=== PATIENT | male | born 1960 | race Caucasian/White ===

== ENCOUNTER 2022-12-03 20:35 | Emergency (ER) | payer OTHER, SELFPAY ==
[2022-12-03 20:39] VITALS: BP 140/85; PULSE 81; RESP 16; TEMP 36.9; O2SAT 98; BMI 30.5
--- NOTE | 2022-12-03 20:48 | ED_ITS ---
HPI - General Adult General Time Seen by Provider: 20:48 Date Seen: 12/03/22 Chief complaint: Lower Extremity Swelling Stated complaint: R leg abrasion, possibly infected Time Seen by Provider: 12/03/22 20:48 Source: patient, RN notes reviewed and old records reviewed Mode of arrival: ambulatory Limitations: no limitations History of Present Illness HPI narrative: 62-year-old male who presents today with a right leg wound and pain. 5 days ago he hit his right leg assisting abrasions and swelling. The swelling is moved down leg but he is concerned now because it seems warm and red. Denies fever, chills, nausea, vomiting, diarrhea. Has been treating this with hydrogen peroxide, antibiotic ointment. Related Data Previous Rx's Medication Instructions Recorded amoxicillin 500 mg-potassium 1 tab PO TID #20 tabs 12/03/22 clavulanate 125 mg tablet (Augmentin) doxycycline hyclate 100 mg capsule 100 mg PO BID #14 caps 12/03/22 Allergies Allergy/AdvReac Type Severity Reaction Status Date / Time No Known Drug Allergies Allergy Verified 12/03/22 20:43 Review of Systems Status of ROS: Reports: 10 or more systems reviewed and unremarkable except as noted in History and below Exam Narrative: Exam Narrative: General: well nourished , NAD Head: Atraumatic and normocephalic ENT: External ears and external nose are normal Eyes: Conjunctiva clear, pupils are equal reactive, external ocular motions are intact Neck: Full spontaneous range of motion of the neck Lungs: No respiratory distress Musculoskeletal: Right lower leg with swelling and bruising expanding to the toes and lateral calcaneal area. Abrasion with swelling of the lateral lower leg, mild redness and some warmth with some serous drainage. Neurologic: No gross focal neurologic deficits Skin: No rashes Psych: Mood and affect are appropriate Const: Vital Signs, click to edit/add: Vital Signs - 24 hr 12/03/22 20:39 Temperature 98.5 F Pulse Rate [Right Pulse Oximeter] 81 Respiratory Rate 16 Blood Pressure [Ri ght Upper Arm] 140/85 H Pulse Oximetry 98 Oxygen Delivery Me thod Room Air Course Course Hospital Course: Patient seen examined, prior records reviewed. Patient presents today about 5 days after an injury to the right leg with increased redness and lb swelling. On exam, there is marked gravity dependent bruising going into the foot and ankle area with no pain in these areas, ambulating without difficulty. On the lateral lower leg there is an area of localized swelling with an overlying harsha char, mild redness and warmth. This is most consistent with hematoma, possibly now infected. At this point, patient has no systemic signs of infection. Will be started on oral antibiotics and follow-up with general surgery for consider of opening this if antibiotics are not sufficient, may also need wound care down the road although generally looks pretty good now. Vital Signs Vital signs: Initial Vital Signs Temperature 98.5 F 12/03/22 20:39 Temperature Source Temporal Artery Scan 12/03/22 20:39 Pulse Rate 81 12/03/22 20:39 Pulse Rhythm Regular 12/03/22 20:39 Pulse Strength 3+ Normal 12/03/22 20:39 Respiratory Rate 16 12/03/22 20:39 Blood Pressure 140/85 H 12/03/22 20:39 Blood Pressure Mean 103 12/03/22 20:39 Blood Pressure Position Sitting 12/03/22 20:39 Pulse Oximetry 98 12/03/22 20:39 Oxygen Delivery Method Room Air 12/03/22 20:39 Vital Signs Temperature 98.5 F 12/03/22 20:39 Pulse Rate 81 12/03/22 20:39 Respiratory Rate 16 12/03/22 20:39 Blood Pressure 140/85 H 12/03/22 20:39 Pulse Oximetry 98 12/03/22 20:39 Oxygen Delivery Method Room Air 12/03/22 20:39 Temperature 98.5 F 12/03/22 20:39 Pulse Rate 81 12/03/22 20:39 Respiratory Rate 16 12/03/22 20:39 Blood Pressure 140/85 H 12/03/22 20:39 Pulse Oximetry 98 12/03/22 20:39 Oxygen Delivery Method Room Air 12/03/22 20:39 Medical Decision Making Medical Records Medical records reviewed: Yes I reviewed the patient's medical records Lab Data Lab results reviewed: Yes I reviewed the patient's lab results Discharge Plan Discharge Clinical Impression: Traumatic hematoma of lower leg with infection Patient Disposition: Home, Self-Care Condition: Stable Instructions: Wound Infection (DC), Hematoma (ED) Additional Instructions: Continue wound care with gentle washing daily, dressing as needed. Follow-up with general surgery in 2-3 days for recheck. Call [phone] for an appointment. Activity Level: Activity as Tolerated Discharge Diet: Regular Prescriptions: New amoxicillin-pot clavulanate [Augmentin] 500-125 mg tablet 1 tab PO TID Qty: 20 0RF doxycycline hyclate 100 mg capsule 100 mg PO BID Qty: 14 0RF Follow Up/Referrals: Abel Castorena MD [Primary Care Provider] - Stand Alone Forms: [email or web address] Info Instructions
[2022-12-03] MEDS: AMOXICILLIN/CLAVULANATE 875 mg/125 mg TABLET PO (21:18)
[2022-12-03] MEDS: DOXYCYCLINE HYCLATE 100 MG CAPSULE PO (21:32)
== END 2022-12-03 21:38 | disposition home or self-care (01) ==
LOC: ED 21:08
PROVIDERS: Emergency Provider Family Medicine; PCP Family Medicine
DX: S80.11XA Contusion of right lower leg, initial encounter (principal); X58.XXXA Exposure to other specified factors, initial encounter
CPT/HCPCS: 99282; 99283; 99284; A9270

== ENCOUNTER 2023-10-10 07:55 | Outpatient (CLI) | payer OTHER, SELFPAY ==
--- OUTSIDE RECORDS SUMMARY | 2023-10-15 12:59 | XMS_ITS | Clinical Summary ---
Author Name Unknown Organization [facility] Address [place], [place] [address] Care Team Providers Care Customer Supply Chain Analyst Name Role Phone Puneet Aguila Primary Care Provider [phone] Allergies No known active allergies Medications Medication Sig Dispensed Refills Start Date End Date Status tamsulosin (FLOMAX) 0.4 mg capsuleIndications:BP H with urinary obstruction Take 1 capsule by mouth once daily after a meal. 90 capsule 3 11/26/2019 Active naproxen (NAPROSYN) 500 mg tabletIndications:Lum bar disc herniation Take 1 tablet by mouth 2 times daily with meals. 60 tablet 1 02/07/2020 Active Active Problems Problem Noted Date Diagnosed Date Overweight 12/31/2019 BPH without urinary obstruction 12/31/2019 Lumbar degenerative disc disease 12/31/2019 Prediabetes Resolved Problems Problem Noted Date Diagnosed Date Resolved Date Routine health maintenance 04/05/2011 0 12/31/2019 Overview: Colonoscopy done 05/25 Immunizations Name Administration Dates Next Due AMB INFLUENZA, IIV4 (AGE=>6MOS) MDV (Flu Clinic Only) 04/10/2019 Influenza, IIV3 (Age >=3 years) 02/28/2015,03/19 MMR 07/30/1989 Tdap 12/31/2019,06/16/2010 Zoster (Shingrix-RZV, recombinant) 04/10/2019, Family History Medical History Relation Name Comments Diabetes Brother Stroke Father Cancer-colon Maternal Grandfather Arthritis Mother @ 78 Multiple sclerosis Paternal Grandfather Alzheimer's disease Paternal Grandmother late onset Relation Name Status Comments Brother Alive Father Alive Maternal Grandfather Maternal Grandmother Mother Paternal Grandfather Paternal Grandmother Social History Tobacco Use Types Packs/Day Years Used Date Smoking Tobacco: Never Smokeless Tobacco: Never Tobacco Cessation:Counseling Given: Yes Alcohol Use Standard Drinks/Week Comments No 0 (1 standard drink = 0.6 oz pur e alcohol) PHQ-2 Answer Date Recorded PHQ-2 TOTAL SCORE 0 11/26/2019 Social Connections Answer Date Recorded Frequency of Communication with Friends and Fami ly Not on file 06/16/2021 Financial Resource Strain Answer Date R ecorded Difficulty of Paying Living Expenses Not on file 06/16/2021 Difficulty of Paying Living Expenses Not on file 06/16/2021 Sex and Gender Information Value Date Recorded Sex Assigned at Not on file Gender Identity Not on file Sexual Orientation Not on file Obstetrics History Last Filed Vital Signs Vital Sign Reading Time Taken Comments Blood Pressure 111/73 02/07/2020 8:03 AM CDT Pulse 59 02/07/2020 8:03 AM CDT Temperature 36.4 ??C (97.6 ??F) 02/07/2020 8:03 AM CD T Respiratory Rate 20 12/03/2019 7:57 AM CDT Oxygen Saturation 97% 02/07/2020 8:03 AM CDT Inhaled Oxygen Concentration - - Weight 108.9 kg (240 lb) 02/07/2020 8:03 AM CDT Height 181.8 cm (5' 11.58) 12/31/2019 7:58 AM C DT Body Mass Index 32.94 12/31/2019 7:58 AM CDT Plan of Treatment Health Maintenance Due Date Last Done Comments HIV for age 15-65 1975 Hepatitis C screening for age 18-79 1978 Colonoscopy through age 75 2005 Depression screening for age 12+ 11/25/2020 11/26/2019, 10/21/2016 BMI (ht and wt on same day) for age 18+ 12/30/2020 12/31/2019, 12/03/2019, 11/26/2019, Additional history exists COVID-19 vaccine series (2022- season) 2023 Influenza for age 50-64 02/15/2024 04/10/20 19, 02/28/2015, 03/19/2012 Lipids for age 45-75 12/23/2024 12/24/2019, 10/21/2016, 06/15/2013, Additional history exists Tetanus booster 12/30/2029 12/31/2019, 06/16/2010 Zoster (shingles) series for age 50+ Completed 04/10/2019, 01/15/2019 Tdap Completed 12/31/2019, 06/16/2010 Pneumococcal series for age 6-64 Aged Out No longer eligible based on patient's age to complete this topic Procedures Procedure Name Priority Date/Time Associated Diagnosis Comments LIPID PANEL W REFLEX MEASURED LDL Routine 12/24/2019 8:07 AM CDT Lipid screening from Last 3 Months or Most Recently Relevant to Health Maintenance Results * (ABNORMAL) LIPID PANEL W REFLEX MEASURED LDL (12/24/2019 8:07 AM CDT) CHOLESTEROL,TOTAL 184 100 - 199 mg/dL 12/24/2019 2:34 PM CDT [facility] TRIGLYCERIDES 122 <150 mg/dL 12/24/2019 2:34 PM CDT [facility] HDL CHOLESTEROL 39(L) >40 mg/dL 0 2:34 PM CDT [facility] NON-HDL CHOLESTEROL 145(H) <145 mg/dl 12/24/2019 2:34 PM CDT [facility] CHOL/HDL RATIO 4.72(H) <4.50 12/24/2019 2:34 PM CDT [facility] LDL CHOLESTEROL 121 <=130 mg/dL 12/24/2019 2:34 PM CDT [facility] PROVIDER ORDERED STATUS RANDOM 12/24/2019 2:34 PM CDT [facility] Blood BLOOD SPECIMEN / Unknown Venipuncture / Unknown 12/24/2019 8:07 AM CDT 12/24/2019 8:43 AM CDT Abel Castorena MD [facility] [address] [place] [address], [place] from Last 3 Months or Most Recently Relevant to Health Maintenance Care Teams Customer Supply Chain Analyst Relationship Specialty [place] [address] [place] [address] PCP - General Family Practice 04/16/18
== END 2023-10-10 07:56 | disposition home or self-care (01) ==
LOC: NFLDREF 10-15 12:58
PROVIDERS: PCP Internal Medicine; Referring Provider Internal Medicine; Visit Provider Internal Medicine
DX: Z12.5 Encounter for screening for malignant neoplasm of prostate (principal); Z13.220 Encounter for screening for lipoid disorders; Z13.228 Encounter for screening for other metabolic disorders
CPT/HCPCS: 80053; 80061; G0103

== ENCOUNTER 2024-06-04 10:09 | Outpatient (CLI) | payer OTHER, SELFPAY | END 2024-06-04 10:10 | disposition home or self-care (01) | PROVIDERS: PCP Internal Medicine; Visit Provider Physician Assistant | DX: M17.11 Unilateral primary osteoarthritis, right knee (principal) | CPT/HCPCS: 87070; 87075; 87205; 89060 ==

== ENCOUNTER 2024-09-30 10:00 | Outpatient (CLI) | payer OTHER, SELFPAY | END 2024-09-30 10:01 | disposition home or self-care (01) | LOC: NFLDREF 10-03 18:39 | PROVIDERS: PCP Internal Medicine; Referring Provider Internal Medicine; Visit Provider Orthopaedic Surgery Sports Medicine | DX: M17.11 Unilateral primary osteoarthritis, right knee (principal); M25.461 Effusion, right knee | CPT/HCPCS: 87070; 87075; 87205; 89051; 89060 ==

== ENCOUNTER 2025-05-16 06:22 | Outpatient (CLI) | payer OTHER, SELFPAY ==
--- NOTE | 2025-05-16 07:49 | P.ANES_ITS ---
Anesthesia Charges Start Date/Time Anesthesia Start Date: 05/16/25 Anesthesia Start Time: 07:17 Stop Date/Time Anesthesia Stop Date: 05/16/25 Anesthesia Stop Time: 07:48 Coding CPT Codes CPT Codes: ROSY LWR INTST NDSC NOS - [id number] ([id number]) P2 - PATIENT W/MILD SYST DISEASE, QK - DEBURRER STRIP 2-4 CNCRNT ANES PROC, QX - CUSTOMS GUARD SVC W/ MD MED DIRECTION
--- NOTE | 2025-05-16 07:49 | W.ANESCHARGE ---
Anesthesia Charges Start Date/Time Anesthesia Start Date: 05/16/25 Anesthesia Start Time: 07:17 Stop Date/Time Anesthesia Stop Date: 05/16/25 Anesthesia Stop Time: 07:48 Coding CPT Codes CPT Codes: ROSY LWR INTST NDSC NOS - [id number] ([id number]) P2 - PATIENT W/MILD SYST DISEASE, QK - OPHTHALMIC SURGICAL ASSISTANT 2-4 CNCRNT ANES PROC, QX - TEAM FACILITATOR SVC W/ MD MED DIRECTION
--- NOTE | 2025-05-16 08:27 | P.ANES_ITS ---
Anesthesia Charges Start Date/Time Anesthesia Start Date: 05/16/25 Anesthesia Start Time: 07:17 Stop Date/Time Anesthesia Stop Date: 05/16/25 Anesthesia Stop Time: 07:48 Coding CPT Codes CPT Codes: ROSY LWR INTST NDSC NOS - [id number] ([id number]) P2 - PATIENT W/MILD SYST DISEASE, QK - MEDICAL SALES 2-4 CNCRNT ANES PROC, QX - VALVE SEATER OPERATOR SVC W/ MD MED DIRECTION
--- NOTE | 2025-05-16 08:27 | W.ANESCHARGE ---
Anesthesia Charges Start Date/Time Anesthesia Start Date: 05/16/25 Anesthesia Start Time: 07:17 Stop Date/Time Anesthesia Stop Date: 05/16/25 Anesthesia Stop Time: 07:48 Coding CPT Codes CPT Codes: ROSY LWR INTST NDSC NOS - [id number] ([id number]) P2 - PATIENT W/MILD SYST DISEASE, QK - DIRECTOR OF CONSULTING SERVICES 2-4 CNCRNT ANES PROC, QX - MATHEMATICAL PHYSICIST SVC W/ MD MED DIRECTION
== END 2025-05-16 06:23 | disposition home or self-care (01) ==
PROVIDERS: PCP Internal Medicine; Visit Provider Internal Medicine
DX: Z12.11 Encounter for screening for malignant neoplasm of colon (principal); D12.0 Benign neoplasm of cecum; D12.5 Benign neoplasm of sigmoid colon; K64.8 Other hemorrhoids; K57.30 Diverticulosis of large intestine without perforation or abscess without bleeding
CPT/HCPCS: 00811; 00812; 45380; J2704